=== PATIENT | female | born 1985 | race Caucasian/White ===

== ENCOUNTER 2020-04-29 18:23 | Emergency (ER) | payer SELFPAY ==
[2020-04-29 18:34] VITALS: BP 126/78; PULSE 107; RESP 18; TEMP 36.7; O2SAT 100; BMI 23.1
--- NOTE | 2020-04-29 18:56 | HMH.EDUTC ---
[facility] [place] Disposition Clinical Impression: Migraine headache Qualifiers: Migraine type: unspecified Status migrainosus presence: without status migrainosus Intractability: not intractable Qualified Code(s): G43.909 - Migraine, unspecified, not intractable, without status migrainosus Disposition: Home, Self-Care Condition on Discharge: Good Instructions: Migraine -- Adult, DI for Migraine Additional Instructions: Go home and lay down and sleep off remainder of migraine headache Return if needed Follow up with Family Doctor Straight to ER if any life threatening symptoms Referrals: PCP,No [Primary Care Provider] - As needed Forms: Work/School Release Time of Disposition: 19:06 Medical Decision Making - Gianfranco Inquiry Pt receiving controlled substance: No Gianfranco was queried for this patient: No Vital Signs: 04/29/20 18:34 Temperature 98.0 F Temperature Source Oral Pulse Rate [Radial] 107 H Respiratory Rate 18 Blood Pressure [Right Arm] 126/78 Blood Pressure Mean [Right Arm] 94 Blood Pressure Source [Right Arm] Automatic Cuff Blood Pressure Position [Right Arm] Sitting 02 Sat by Pulse Oximetry 100 Oxygen Delivery Method Room Air Orders (Tests/Meds): ED MEDICATIONS Discontinued Medications Generic Name Dose Route Start Last Admin Trade Name Freq PRN Reason Stop Dose Admin Diphenhydramine HCl 25 mg 04/29/20 18:38 04/29/20 18:51 Diphenhydramine 50mg/Ml Vial IM 04/29/20 18:39 25 mg ONCE ONE Administration Ketorolac Tromethamine 60 mg 04/29/20 18:38 04/29/20 18:51 Ketorolac 60mg/2ml Vial IM 04/29/20 18:39 60 mg ONCE ONE Administration Ondansetron HCl 4 mg 04/29/20 18:38 04/29/20 18:52 Ondansetron 4mg Odt SL 04/29/20 18:39 4 mg ONCE ONE Administration Medical Decision Narrative: Patient denies chance of Patient states that medication has helped and feeling a little better [facility] [place] HPI - General Stated complaint: CORREIA Time Seen by Provider: 04/29/20 19:03 Mode of Arrival: Ambulatory Source of Information: Patient Limitations: No Limitations Description of Symptoms (Recalled from Triage Doc. by RN): MIGRAINE. HEENT Symptoms (Recalled from RN notes): Yes Resp Symptoms (Recalled from RN notes): No Skin Symptoms (Recalled from RN notes): No MS Symptoms (Recalled from RN notes): No Functional Status (Recalled from RN notes): WNL - History of Present Illness Provider Complaint: Patient state she has a history of Migraine Headaches States that she was in visiting family when she struck with migraine States that she tried over the counter medication but it hasnt helped so she come in to see if she could get a shot like she gets at home for it States that she has taken Torodol multiple times without problems - Related Data Allergies Allergy/AdvReac Type Severity Reaction Status Date / Time No Known Allergies Allergy Verified 04/29/20 18:37 - Worker's Comp Is this a Worker's Comp case?: No [facility] History - Hepatitis A Screen Drug use history?: No High risk sexual behaviors?: No History of sexually transmitted infection?: No Currently employed?: No Childcare worker?: No Do you have indoor plumbing?: Yes Do you have electricity?: Yes Attestation statement:: This patient has been screened for Hepatitis A risk factors. I have reviewed the patient's past medical history: Yes - Social History Alcohol Intake: never Occupational Status: employed Housing: house ROS Obtained: Yes All systems reviewed & no additional complaints, Yes Systems reviewed as appropriate & no additional complaints - Constitutional Constitutional: Reports system reviewed and no additional complaints, except as docu, Reports headache(s) - Eyes Eyes: Reports system reviewed and no additional complaints, except as docu, Denies blurry vision, Denies diplopia, Denies eye discharge - ENT Ears, Nose, Mouth, and Throat: Reports system reviewed and no additional complaints, except a
[2020-04-29 19:15] VITALS: BP 126/78; PULSE 107; RESP 18; TEMP 36.7; O2SAT 100
== END 2020-04-29 19:16 | disposition home or self-care (01) ==
PROVIDERS: Emergency Provider Nurse Practitioner
DX: G43.909 Migraine, unspecified, not intractable, without status migrainosus (principal)
CPT/HCPCS: 96372; 99201

== ENCOUNTER 2022-07-27 16:18 | Emergency (ER) | payer BC, SELFPAY ==
[2022-07-27] VITALS (7 sets, daily range): BP systolic 116–150; BP diastolic 73–93; PULSE 86–141; RESP 16–30; TEMP 36.6; O2SAT 98–100; BMI 19.0
--- NOTE | 2022-07-27 16:31 | HMH.EDGENADL ---
Discharge Plan Disposition Patient Disposition: Home, Self-Care Condition: Good Prescriptions Prescriptions: New prednisone 20 mg tablet 20 mg PO BID Qty: 6 0RF famotidine [Pepcid] 20 mg tablet 20 mg PO BID Qty: 6 0RF epinephrine [EpiPen 2-Wm] 0.3 mg/0.3 mL auto-injector 0.3 mg IM Q10M PRN (Reason: anaphylaxis) Qty: 2 0RF Rx Instructions: for 2 doses No Action losartan 50 mg tablet 50 mg PO DAILY Label Comments: TAKE 1 TABLET (50 MG TOTAL) BY MOUTH IN THE MORNING. trazodone 50 mg tablet 50 mg PO DAILY Label Comments: TAKE 1 TABLET BY MOUTH NIGHTLY NEEDED FOR SLEEP sertraline 100 mg tablet 100 mg PO DAILY Label Comments: TAKE 1 TABLET (100 MG TOTAL) BY MOUTH IN THE MORNING. amlodipine 10 mg tablet 10 mg PO DAILY Label Comments: TAKE 1 TABLET BY MOUTH EVERY DAY clonidine HCl 0.1 mg tablet 0.1 mg PO DAILY PRN (Reason: .) Label Comments: TAKE 1 TABLET (0.1 MG TOTAL) BY MOUTH DAILY NEEDED (IF BLOOD PRESSURE IS GREATER THAN 160/90). hydroxyzine HCl 25 mg Tablet 25 mg PO HS Referrals Follow up/Referrals: Provider,Referral, MD [Primary Care Provider] - See instructions Activity Restrictions/Add. Instructions Additional Instructions/Restrictions: Take Benadryl 25 mg every 6 hours for 3 days. Take Pepcid and prednisone as prescribed. EpiPen refill, use as needed. Clinical Impressions Clinical Impression: Acute allergic reaction Instructions Patient Instructions: DI for Food Allergy, DI for General Allergic Reactions Discharge ED Provider: Stan Pimentel General Adult HPI General Chief complaint: Allergic Reaction Stated complaint: ALLERGIC REACTION Time Seen by Provider: 07/27/22 16:20 History of Present Illness HPI narrative: Complains of an allergic reaction. States that she has multiple allergies that can cause anaphylaxis. She was eating at a [place] restaurant, thinks she might of been exposed to avocados, to which she is allergic. She developed some hives on her neck. She has an EpiPen, but did not have it with her at the time. She had to drive 10 minutes home to get the EpiPen, which she administered, and has taken 75 mg of Benadryl. Currently feels shaky, but improved. 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 Related Data Home Medications Medication Instructions Recorded Confirmed amlodipine 10 mg tablet 10 mg PO DAILY bp 07/27/22 07/27/22 clonidine HCl 0.1 mg tablet 0.1 mg PO DAILY PRN . 07/27/22 07/27/22 hydroxyzine HCl 25 mg tablet 25 mg PO HS . 07/27/22 07/27/22 losartan 50 mg tablet 50 mg PO DAILY . 07/27/22 07/27/22 sertraline 100 mg tablet 100 mg PO DAILY . 07/27/22 07/27/22 trazodone 50 mg tablet 50 mg PO DAILY sleep 07/27/22 07/27/22 Previous Rx's Medication Instructions Recorded epinephrine 0.3 mg/0.3 mL 0.3 mg (0.3 mL) IM Q10M PRN 07/27/22 injection, auto-injector (EpiPen anaphylaxis #2 ea 2-Wm) famotidine 20 mg tablet (Pepcid) 20 mg PO BID #6 tabs 07/27/22 prednisone 20 mg tablet 20 mg PO BID #6 tabs 07/27/22 Allergies Allergy/AdvReac Type Severity Reaction Status Date / Time avocado Allergy Severe Difficulty Verified 07/27/22 16:58 Breathing ketorolac [From Toradol] Allergy Severe Difficulty Verified 07/27/22 16:58 Breathing latex Allergy Severe Anaphylaxis Verified 07/27/22 16:58 [facility] Disclaimer: The information contained in this section may have been updated after the patient was seen, as this information can be updated by other users. Social History Smoking Status: Unknown if ever smoked alcohol intake: never current occupational status: employed Travel in the last 8 weeks: None housing: house ROS Obtained: Yes Systems reviewed as appropriate & no additional complaints except as documented Respiratory Respiratory: Reports shortness of breath Int
--- NOTE | 2022-07-27 16:53 | PC.NURSE ---
pt sitting up in bed at this time, no distress noted. Pt given ice chips
== END 2022-07-27 19:24 | disposition home or self-care (01) ==
PROVIDERS: Emergency Provider Emergency Medicine
DX: T78.1XXA Other adverse food reactions, not elsewhere classified, initial encounter (principal); L50.0 Allergic urticaria
CPT/HCPCS: 96374; 96375; 99285; J2405